=== PATIENT | female | born 1995 | race Two or more races ===

== ENCOUNTER 2018-05-20 20:19 | Emergency (ER) | payer MEDICAID ==
[~2018-05-20] VITALS: Ht 149.9 cm; Wt 50.8 kg
[2018-05-20 21:19] VITALS: BP 143/92
[2018-05-20] MEDS ORDERED: cefTRIAXone SOD 1,000 MG VL ONE (22:43)
[2018-05-20] MEDS ORDERED: ACETAMINOPHEN/CODEINE#3 (300/30mg) TAB PO ONE (22:45)
[2018-05-20] MEDS ORDERED: cefTRIAXone W LIDOCAINE 1 GM IM IM ONE (22:45)
== END 2018-05-21 00:41 | disposition home or self-care (01) ==
LOC: ER 20:19
DX: N39.0 Urinary tract infection, site not specified (principal); J06.9 Acute upper respiratory infection, unspecified; M41.9 Scoliosis, unspecified
CPT/HCPCS: 81002; 81025; 96372; 99283; J0696